=== PATIENT | female | born 1960 | race Caucasian/White ===

== ENCOUNTER 2018-09-20 15:40 | Inpatient (IN) | payer BC ==
[~2018-09-20] VITALS: Ht 170.2 cm; Wt 65.8 kg
[2018-09-20 15:48] VITALS: BP 132/65
--- NOTE | 2018-09-20 15:48 | NUR ---
ED Nurse Note: pt brought by [id number] from urgent care due to severe diarrheas for 2 days. pt denies n/v. pt also c/o muscle cramping. pt appears to be pale. per pt, normally pale but gets worse. AAO x4. respirations even and non-labored noted. skin warm to touch. no open wound noted. will wait for the further order.
[2018-09-20] MEDS ORDERED: Dicyclomine HCl 10mg/5ml oral soln ORAL ONE (16:00)
[2018-09-20] MEDS ORDERED: Lidocaine 2% Visc 15ml soln ORAL ONE (16:00)
[2018-09-20] MEDS ORDERED: Mylanta II UD 30ml ORAL ONE (16:00)
[2018-09-20 16:24] LABS: BASOPHILS % (AUTO) 0.8 % (0.0-2.0); EOSINOPHILS % (AUTO) 0.2 % (0.0-3.0); HEMATOCRIT 33.9 % (37.0-47.0); HEMOGLOBIN 12.6 G/DL (12.0-16.0); LYMPHOCYTES % (AUTO) 11.3 % (20.0-45.0); MEAN CORPUSCULAR VOLUME 82 FL (80-99); MONOCYTES % (AUTO) 5.4 % (1.0-10.0); NEUTROPHILS % (AUTO) 82.3 % (45.0-75.0); PLATELET COUNT 254 K/UL (150-450); RED BLOOD COUNT 4.15 M/UL (4.20-5.40); RED CELL DISTRIBUTION WIDTH 9.7 % (11.6-14.8); WHITE BLOOD COUNT 10.2 K/UL (4.8-10.8)
--- NOTE | 2018-09-20 16:28 | Emergency Room Report ---
History of Present Illness General Chief Complaint: Nausea, Vomiting, and Diarrhea Source: Patient, EMS Present Illness HPI 57-year-old female presents ED for evaluation. Brought in by EMS from clinic. Complaining of abdominal pain with vomiting and diarrhea. Started yesterday. Had multiple episodes of loose watery stools. Pain is cramping, 6 out of 10, nonradiating. Denies fevers or chills. Denies recent travel or recent antibiotic use. States symptoms started shortly after eating at shopping mall cafeteria. No other aggravating relieving factors. Denies any other associated symptoms Allergies: Coded Allergies: MILK (Verified Allergy, Unknown, 09/20/18) Wheat (Verified Allergy, Unknown, 09/20/18) Patient History Past Medical History: none Past Surgical History: none Pertinent Family History: none Social History: Denies: smoking, alcohol use, drug use Last Menstrual Period: na Now: No Immunizations: UTD Reviewed Nursing Documentation: PMH: Agreed; PSxH: Agreed Nursing Documentation-PMH Past Medical History: No History, Except For Review of Systems All Other Systems: negative except mentioned in HPI Physical Exam Vital Signs Date Time Temp Pulse Resp B/P (MAP) Pulse Ox O2 Delivery O2 Flow Rate FiO2 09/20/18 15:33 97.5 87 20 137/75 (95) 98 Room Air Sp02 EP Interpretation: reviewed, normal General Appearance: no apparent distress, alert, GCS 15, non-toxic Head: normocephalic, atraumatic Eyes: bilateral eye normal inspection, bilateral eye PERRL ENT: hearing grossly normal, normal pharynx, no angioedema, normal voice Neck: full range of motion, supple/symm/no masses Respiratory: chest non-tender, lungs clear, normal breath sounds, speaking full sentences Cardiovascular #1: regular rate, rhythm, no edema Cardiovascular #2: 2+ carotid (R), 2+ carotid (L), 2+ radial (R), 2+ radial (L) , 2+ dorsalis pedis (R), 2+ dorsalis pedis (L) Gastrointestinal: normal bowel sounds, non tender, soft, non-distended, no guarding, no rebound Rectal: deferred Genitourinary: normal inspection, no CVA tenderness Musculoskeletal: back normal, gait/station normal, normal range of motion, non- tender Neurologic: alert, oriented x3, responsive, motor strength/tone normal, sensory intact, speech normal Psychiatric: judgement/insight normal, memory normal, mood/affect normal, no suicidal/homicidal ideation Reflexes: 3+ bicep (R), 3+ bicep (L), 3+ tricep (R), 3+ tricep (L), 3+ knee (R) , 3+ knee (L) Lymphatic: no adenopathy Medical Decision Making Diagnostic Impression: Primary Impression: Hyponatremia Additional Impression: Gastroenteritis ER Course Hospital Course 57-year-old male presents ED with abdominal pain, vomiting and diarrhea Clinical course differentialgastritis, gastroneuritis, dehydration Patient placed on stretcher. After initial history and physical I ordered labs , IV fluids, medications Labs - no leukocytosis Hb/Hct stable. Na 112, K 3.5, UA negative Discussed findings with patient. Has history of hyponatremia but states it is not been this low in a while. Has history of hypothyroidism. Synthroid. Denies taking any other medications Given NS bolus initially. Started on hypertonic saline. Is awake alert oriented but states she does feel weak EKGsinus bradycardia, no acute ischemic changes interpreted by me Case discussed with Dr. Dowd and he agreed to accept the patient to his service for further care and support I feel this is a highly complex case requiring extensive working including EKG/ Rhythm strip, Xray/CT/US, Blood/urine lab work, repeat exams while in ED, and administration of strong opiates/narcotics for pain control, admission to hospital or close patient follow up. Diagnosis - hyponatremia, gastroenteritis Patient admitted to telemetry in serious condition Labs Test 09/20/18 16:00 09/20/18 18:18 White Blood Count 10.2 K/UL (4.8-10.8) Red Blood Count 4.15 M/UL (4.20-5.40) Hemoglobin 12.6 G/DL (12.0-16.0) Hematocrit 33.9 % (37.0-47.0) Mean Corpuscular Volume 82 FL (80-99) Mean Corpuscular Hemoglobin 30.3 PG (27.0-31.0) Mean Corpuscular Hemoglobin Concent 37.1 G/DL (32.0-36.0) Red Cell Distribution Width 9.7 % (11.6-14.8) Platelet Count 254 K/UL (150-450) Mean Platelet Volume 6.9 FL (6.5-10.1) Neutrophils (%) (Auto) 82.3 % (45.0-75.0) Lymphocytes (%) (Auto) 11.3 % (20.0-45.0) Monocytes (%) (Auto) 5.4 % (1.0-10.0) Eosinophils (%) (Auto) 0.2 % (0.0-3.0) Basophils (%) (Auto) 0.8 % (0.0-2.0) Sodium Level 112 MMOL/L (136-145) Potassium Level 3.5 MMOL/L (3.5-5.1) Chloride Level 81 MMOL/L (98-107) Carbon Dioxide Level 17 MMOL/L (21-32) Anion Gap 13 mmol/L (5-15) Blood Urea Nitrogen 7 mg/dL (7-18) Creatinine 0.7 MG/DL (0.55-1.30) Estimat Glomerular Filtration Rate > 60 mL/min (>60) Glucose Level 109 MG/DL (74-106) Calcium Level 8.8 MG/DL (8.5-10.1) Total Bilirubin 0.9 MG/DL (0.2-1.0) Aspartate Amino Transf (AST/SGOT) 32 U/L (15-37) Alanine Aminotransferase (ALT/SGPT) 24 U/L (12-78) Alkaline Phosphatase 85 U/L (46-116) Total Protein 6.9 G/DL (6.4-8.2) Albumin 3.8 G/DL (3.4-5.0) Globulin 3.1 g/dL Albumin/Globulin Ratio 1.2 (1.0-2.7) Lipase 170 U/L (73-393) Urine Color Pale yellow Urine Appearance Clear Urine pH 8 (4.5-8.0) Urine Specific [place] 1.010 (1.005-1.035) Urine Protein Negative (NEGATIVE) Urine Glucose (UA) Negative (NEGATIVE) Urine Ketones 3+ (NEGATIVE) Urine Blood 1+ (NEGATIVE) Urine Nitrite Negative (NEGATIVE) Urine Bilirubin Negative (NEGATIVE) Urine Urobilinogen Normal MG/DL (0.0-1.0) Urine Leukocyte Esterase 1+ (NEGATIVE) Urine RBC 0-2 /HPF (0 - 2) Urine WBC 2-4 /HPF (0 - 2) Urine Squamous Epithelial Cells Few /LPF (NONE/OCC) Urine Bacteria Few /HPF (NONE) EKG Diagnostic Results Rate: bradycardiac Rhythm: NSR ST Segments: no acute changes ASA given to the pt in ED: No Rhythm Strip Diag. Results EP Interpretation: yes Rhythm: NSR, no PVC's, no ectopy Last Vital Signs Date Time Temp Pulse Resp B/P (MAP) Pulse Ox O2 Delivery O2 Flow Rate FiO2 09/20/18 15:48 97.5 62 15 132/65 98 Room Air Status: improved Disposition: ADMITTED INPATIENT Condition: Serious Kleber Padilla MD Sep 20, 2018 16:27
[2018-09-20 16:59] LABS: ALANINE AMINOTRANSFERASE 24 U/L (12-78); ALBUMIN 3.8 G/DL (3.4-5.0); ALBUMIN/GLOBULIN RATIO 1.2 (1.0-2.7); ALKALINE PHOSPHATASE 85 U/L (46-116); ANION GAP 13 mmol/L (5-15); ASPARTATE AMINO TRANSFERASE 32 U/L (15-37); BILIRUBIN,TOTAL 0.9 MG/DL (0.2-1.0); BLOOD UREA NITROGEN 7 mg/dL (7-18); CALCIUM 8.8 MG/DL (8.5-10.1); CARBON DIOXIDE 17 MMOL/L (21-32); CHLORIDE 81 MMOL/L (98-107); CREATININE 0.7 MG/DL (0.55-1.30); POTASSIUM 3.5 MMOL/L (3.5-5.1)
[2018-09-20 17:01] LABS: SODIUM 112 MMOL/L (136-145)
--- NOTE | 2018-09-20 17:15 | NUR ---
ED Nurse Note: hold IV fluild. per pt, normally has low sodium. dr. Padilla aware and change order to NS as bolus.
[2018-09-20] MEDS: NaCl 3% 500ml 500 ML IV ONE ×2 (17:17→18:50)
[2018-09-20 18:36] LABS: APPEARANCE,URINE CLEAR; BILIRUBIN, URINE NEGATIVE (NEGATIVE); COLOR,URINE PALE YELLOW; GLUCOSE, URINE (UA) NEGATIVE (NEGATIVE); KETONES,URINE 3+ (NEGATIVE); LEUKOCYTE ESTERASE ,URINE 1+ (NEGATIVE); NITRITE,URINE NEGATIVE (NEGATIVE); PH,URINE 8 (4.5-8.0); PROTEIN,URINE NEGATIVE (NEGATIVE); UROBILINOGEN,URINE NORMAL MG/DL (0.0-1.0)
--- NOTE | 2018-09-20 19:01 | NUR ---
HAND-OFF: Report given to STEFANO Cueto.
--- NOTE | 2018-09-20 20:45 | NUR ---
NURSE NOTES: Received pt from ED via gurney. Pt is awake, AOx4. In no acute distress. IV line intact and patent. Placed on cardiac tech showing SR. VS stable. Oriented pt to room and unit. Bed in lowest position, call light within reach. Will contact MD for admission orders.
[2018-09-20] MEDS ORDERED: ZOLOFT50 MG ORAL (21:12)
[2018-09-20] MEDS ORDERED: SYNTHROID75 MCG ORAL (21:12)
[2018-09-20 21:30] VITALS: BP 100/50
--- NOTE | 2018-09-20 22:48 | NUR ---
ED Nurse Note: Patient was admited to TELE due to abd pain, N/V/D, for observation. AAO x4, VSS at this time, skin is warm to touch. Patient was transfered to the unit via gurney, by ACLS protocol with all belongings.
[2018-09-21] VITALS: BP 104/60
[2018-09-21 04:00] VITALS: BP 103/51
[2018-09-21 06:16] LABS: BASOPHILS % (AUTO) 0.7 % (0.0-2.0); EOSINOPHILS % (AUTO) 0.7 % (0.0-3.0); HEMOGLOBIN 11.2 G/DL (12.0-16.0); LYMPHOCYTES % (AUTO) 14.2 % (20.0-45.0); MEAN CORPUSCULAR VOLUME 85 FL (80-99); MONOCYTES % (AUTO) 7.6 % (1.0-10.0); NEUTROPHILS % (AUTO) 76.7 % (45.0-75.0); PLATELET COUNT 191 K/UL (150-450); RED BLOOD COUNT 3.65 M/UL (4.20-5.40); RED CELL DISTRIBUTION WIDTH 10.6 % (11.6-14.8); WHITE BLOOD COUNT 7.9 K/UL (4.8-10.8)
[2018-09-21 07:05] LABS: ALANINE AMINOTRANSFERASE 22 U/L (12-78); ALBUMIN 2.9 G/DL (3.4-5.0); ALBUMIN/GLOBULIN RATIO 1.1 (1.0-2.7); ALKALINE PHOSPHATASE 69 U/L (46-116); ANION GAP 8 mmol/L (5-15); ASPARTATE AMINO TRANSFERASE 32 U/L (15-37); BILIRUBIN,TOTAL 0.7 MG/DL (0.2-1.0); BLOOD UREA NITROGEN 5 mg/dL (7-18); CALCIUM 8.1 MG/DL (8.5-10.1); CARBON DIOXIDE 21 MMOL/L (21-32); CHLORIDE 90 MMOL/L (98-107); CREATININE 0.7 MG/DL (0.55-1.30); PHOSPHORUS 3.2 MG/DL (2.5-4.9); POTASSIUM 3.3 MMOL/L (3.5-5.1)
[2018-09-21 07:07] LABS: SODIUM 119 MMOL/L (136-145)
--- NOTE | 2018-09-21 07:15 | NUR ---
HAND-OFF: Report given to STEFANO Monge.
--- NOTE | 2018-09-21 07:20 | NUR ---
NURSE NOTES: Received report from STEFANO Kohli. Pt is laying in bed with no distress noted. Bed is in lowest position, side rails up X 2, and call light is within reach. Will continue to monitor.
--- NOTE | 2018-09-21 07:30 | NUR ---
NURSE NOTES: Called Dr. Dowd and notified him of patient sodium level. No new orders at this time.
[2018-09-21 08:00] VITALS: BP 107/67
[2018-09-21] MEDS: Heparin 5000 units/ml inj SUBQ SCH ×2 (08:40→21:00)
--- NOTE | 2018-09-21 11:53 | NUR ---
CASE MANAGEMENT: INITIAL REVIEW 09/20/2018 57 YO [place] TREVINO FROM CLINIC CC: N/V/D AND ABD PAIN PMHx: DENIES SI:HYPONATREMIA. GASTROENTERITIS. T 97.5 HR 87 RR 20 B/P 137/75 SATS 98% ON RA NA 112 CL 81 CO2 17 GLU 109 IS: ZOFRAN IV X1 PEPCID IV X1 LIDOCAINE PO X1 BENTYL PO X1 NS BOLUS X1 NaCl 3% BOLUS X1 NS BOLUS X1 PATIENT ADMITTED TO TELE 09/20/2018 @ 1845 DCP: PATIENT TO BE DISCHARGED TO HOME ONCE MEDICALLY CLEARED. 09/21/2018 SI:HYPONATREMIA. GASTROENTERITIS. T 97.3 HR 63 RR 20 B/P 107/67 SATS 98% ON RA NA 119 K 3.3 CL 90 BUN 5 URIC ACID 1.7 CA 8.1 MG 1.5 URINE OSMOLALITY 350 IS: SYNTHROID PO QAM PEPCID PO BID TELE STATUS DCP: PATIENT TO BE DISCHARGED TO HOME ONCE MEDICALLY CLEARED. PLAN OF CARE: I&O FLUID RESTRICTION Addendum: 09/21/18 at 1216 by Radha Quarles INTERQUAL MET
[2018-09-21 12:00] VITALS: BP 92/56
[2018-09-21] MEDS ORDERED: Gadavist 7.5mMol/7.5ml vial IV PRN (13:45)
[2018-09-21 15:59] LABS: ANION GAP 9 mmol/L (5-15); BLOOD UREA NITROGEN 4 mg/dL (7-18); CALCIUM 8.5 MG/DL (8.5-10.1); CARBON DIOXIDE 24 MMOL/L (21-32); CHLORIDE 97 MMOL/L (98-107); CREATININE 0.7 MG/DL (0.55-1.30); POTASSIUM 3.6 MMOL/L (3.5-5.1); SODIUM 129 MMOL/L (136-145)
--- NOTE | 2018-09-21 16:32 | Diagnostic Imaging Report ---
EXAM: MR Head With Intravenous Contrast CLINICAL HISTORY: H/A TECHNIQUE: Magnetic resonance images of the head/brain with intravenous contrast in multiple planes. COMPARISON: No relevant prior studies available. FINDINGS: Brain: No mass. No hemorrhage. No acute infarct. Ventricles: Unremarkable. No ventriculomegaly. Bones/joints: Unremarkable. Sinuses: Unremarkable as visualized. No acute sinusitis. Mastoid air cells: Unremarkable as visualized. No mastoid effusion. Orbits: Unremarkable as visualized. IMPRESSION: No acute process.
--- NOTE | 2018-09-21 16:39 | NUR ---
NURSE NOTES: received call from Dr. ahn. He asked about the BMP results. New orders noted and carried out.
[2018-09-21] MEDS ORDERED: 1/2NS w/KCl 20mEq 1000ml 1,000 ML IV SCH (17:15)
--- NOTE | 2018-09-21 18:30 | History and Physical Report ---
DATE OF ADMISSION: 09/20/2018 CHIEF COMPLAINT/REASON FOR HOSPITALIZATION: The patient admitted with diarrhea and severe hyponatremia. HISTORY OF PRESENT ILLNESS: The patient is a 57-year-old, lady, who the day prior to coming to the emergency room felt bad, thought she might have food poisoning, but mostly had gas and mild headache, but on 09/20/2018, developed severe diarrhea about every 20 minutes. She thought she may have had food poisoning, but there was no fever, chills, hematochezia, or melena. The patient states she has had hyponatremia in the past possibly related to thyroid disease and adjustment of thyroid medicine in the past. She is a vegan and says she is allergic to wheat, which causes gas. She has otherwise been in good health. She usually drinks about 6 cups of coffee a day and denies heavy water or other juice or liquid drinking. There is no history of malignancy. PAST SURGICAL HISTORY: Surgery to the right hand and tonsillectomy. MEDICATIONS: Synthroid 75 mcg daily, Zoloft 50 mg daily, vitamins, [id number] multivitamins and B complex, and other [id number] vitamins. She takes Advil maybe once a week. ALLERGIES: She is intolerant of wheat. HABITS: She is a nonsmoker and nondrinker. No use of illicit drugs. She had used drugs many years ago and quit. FAMILY HISTORY: Positive for diabetes. SYSTEM REVIEW: HEAD, EYES, EARS, NOSE, AND THROAT: Vision and hearing is good. ENDOCRINE: She has a history of hypothyroidism, on replacement. PULMONARY: No asthma, TB, or chronic cough. CARDIAC: No angina, ME, or palpitations. GASTROINTESTINAL: No history of chronic diarrhea. She does get frequent gas and is intolerant to wheat products. She had a peptic ulcer in her teens, which resolved. GENITOURINARY: No dysuria, hematuria, or kidney stones. NEUROLOGIC: No CVA, syncope, or seizures. she felt very bad on admission when she presented with muscle cramps and perhaps mild generalized weakness. She is also complaining of headaches for about a week. With no localizing signs. PHYSICAL EXAMINATION: GENERAL: The patient is alert, well-developed lady, in no acute distress. VITAL SIGNS: Temperature 97.3, pulse 63, respirations 20, and blood pressure 107/67. HEAD, EYES, EARS, NOSE, AND THROAT: Sclerae are nonicteric. Ocular motions intact in all directions. Oral mucosa moist. NECK: No adenopathy or thyroid enlargement. LUNGS: Clear. HEART: Regular rhythm. No murmur. ABDOMEN: Soft without organomegaly or masses. EXTREMITIES: No edema, cyanosis, or clubbing. NEUROLOGIC: She is alert and oriented. Cranial nerves are intact. She moves all extremities equally. Strength is normal. Plantars showed no response. PERTINENT LABORATORY DATA: Initial white count 10.2 and hemoglobin is 12.6. Initial sodium 112, repeat 119. Initial potassium 3.5, repeat 3.3. BUN 7, repeat 5. Glucose 107, repeat 82. Uric acid is 1.7. Phosphorus 3.2. Magnesium 1.5. Albumin is 3.8, repeat 2.9. TSH is 0.473. Cortisol is pending. ASSESSMENT AND PLAN: 1. Severe diarrhea. 2. Severe hyponatremia, which appears to be in excess effect caused by diarrhea. 3. History of recent headaches. PLAN: 1. Aim for correction of sodium of about 6 mEq per day. 2. She will get some 3% saline. 3. We will get OFFICE TECHNOLOGY PROFESSOR imaging in view of her headaches and hyponatremia. 4. Put her on a fluid restriction. It appears that her gastroenteritis is improving at the time of my dictation. Arvind Dowd M.D. DR: MERISSA JOB#: [id number] CC:
[2018-09-21] MEDS ORDERED: 1/2NS w/KCl 20mEq 1000ml 1,000 ML IV ONE (18:45)
--- NOTE | 2018-09-21 19:14 | NUR ---
HAND-OFF: Report given to STEFANO Kohli. Plan of care endorsed
--- NOTE | 2018-09-21 19:20 | NUR ---
NURSE NOTES: Received report from STEFANO Monge. Pt is awake and resting in bed. In no acute distress. IV line intact and patent. Bed in lowest position, call light within reach. Will continue plan of care.
[2018-09-21 20:00] VITALS: BP 102/70
[2018-09-22] VITALS: BP 99/65
[2018-09-22 01:50] VITALS: BP 99/65
[2018-09-22 04:00] VITALS: BP 101/66
--- NOTE | 2018-09-22 07:02 | NUR ---
HAND-OFF: Report given to STEFANO Monge.
--- NOTE | 2018-09-22 07:03 | NUR ---
NURSE NOTES: Received report from STEFANO Kohli. Pt is sleeping in bed. No distress noted. Bed is in lowest position, side rails up X2, and call light is within reach. Will continue to monitor.
[2018-09-22 07:16] LABS: BASOPHILS % (AUTO) 0.9 % (0.0-2.0); EOSINOPHILS % (AUTO) 0.9 % (0.0-3.0); HEMATOCRIT 33.4 % (37.0-47.0); HEMOGLOBIN 11.7 G/DL (12.0-16.0); LYMPHOCYTES % (AUTO) 24.1 % (20.0-45.0); MEAN CORPUSCULAR VOLUME 87 FL (80-99); MONOCYTES % (AUTO) 10.5 % (1.0-10.0); NEUTROPHILS % (AUTO) 63.6 % (45.0-75.0); PLATELET COUNT 203 K/UL (150-450); RED BLOOD COUNT 3.83 M/UL (4.20-5.40); RED CELL DISTRIBUTION WIDTH 11.6 % (11.6-14.8); WHITE BLOOD COUNT 5.6 K/UL (4.8-10.8)
[2018-09-22 07:28] LABS: ANION GAP 6 mmol/L (5-15); BLOOD UREA NITROGEN 2 mg/dL (7-18); CALCIUM 8.7 MG/DL (8.5-10.1); CARBON DIOXIDE 24 MMOL/L (21-32); CHLORIDE 102 MMOL/L (98-107); CREATININE 0.8 MG/DL (0.55-1.30); POTASSIUM 4.5 MMOL/L (3.5-5.1); SODIUM 132 MMOL/L (136-145)
[2018-09-22 08:00] VITALS: BP 110/64
[2018-09-22] MEDS: Heparin 5000 units/ml inj SUBQ SCH (08:41)
[2018-09-22 12:00] VITALS: BP 102/71
--- NOTE | 2018-09-22 21:15 | Discharge Summary ---
DATE OF ADMISSION: 09/20/2018 DATE OF DISCHARGE: 09/22/2018 PERTINENT HISTORY: The patient is a 57-year-old lady, presents with severe hyponatremia and moderately severe diarrhea. See dictated H and P. PERTINENT PHYSICAL FINDINGS: LUNGS: Clear. HEART: Regular rhythm. EXTREMITIES: No edema. NEUROLOGIC: She is alert and oriented with no focal findings. COURSE IN THE HOSPITAL: The patient was placed on a fluid restriction after getting sodium containing IVs in the emergency room. Her sodium serially was 112, 119, 129, and 132. Thyroid function was normal. Cortisol 10.6. She had a low uric acid of 1.7 and urine osmolality 350 initially, repeat 155. On 09/21/2018, she made over 4 liters of fluid despite being on a fluid restriction. The patient admitted marked heavy fluid intake of about 12 cups of coffee a day and possible other fluids. The GI symptoms abated within hours of arrival to the hospital. 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 FINAL DIAGNOSES: 1. Severe hyponatremia. 2. Polydipsia. 3. Diarrhea. 4. Tension headache with negative MRI. DISCHARGE DISPOSITION: Home on a fluid restriction of 1 to 1.5 liters per day and her Synthroid 75 mcg daily. I have asked her to hold off on her Zoloft until outpatient electrolytes were checked and also to avoid nonsteroidal anti-inflammatory agents. She should follow up with her primary care physician within a week. Arvind Dowd M.D. DR: PATRICIA JOB#: [id number] CC:
--- NOTE | 2018-09-24 18:09 | Cardiology Report ---
APPROVED REPORT EKG Measurement Heart [id number] Sinus bradycardia Low voltage QRS Borderline ECG
== END 2018-09-22 13:36 | disposition home or self-care (01) | DRG 641 ==
LOC: EDBD 15:40 → EMR 16:00 → 2E 18:45 → EDBEDREQ 20:13 → 2E 20:20
DX: E87.1 Hypo-osmolality and hyponatremia (principal); R63.1 Polydipsia; G44.209 Tension-type headache, unspecified, not intractable; R19.7 Diarrhea, unspecified
CPT/HCPCS: 36415; 70552; 80048; 80053; 81003; 82378; 82533; 83690; 83735; 83935; 84100; 84439; 84443; 84481; 84550; 85025; 86703; 86803; 87340; 93005; 96361; 96374; 96375; 99285; A9585; J2405; J8499